=== PATIENT | female | born 1935 | race Caucasian/White ===

== ENCOUNTER 2017-05-01 08:22 | Emergency (ER) | payer MEDICARE, OTHER ==
[2017-05-01 08:23] VITALS: BMI 28.7
[2017-05-01 08:44] VITALS: RESP 18
[2017-05-01] MEDS ORDERED: TDAP Vaccine 0.5 mL Syr IM ONE (08:54)
--- NOTE | 2017-05-01 08:56 | ED PDOC ---
Arrival/HPI <Keely Vasques - Last Filed: 05/01/17 09:23> <Anay Clemons P - Last Filed: 05/01/17 10:19> - General Historian: Patient <Florentin Feldman - Last Filed: 05/01/17 12:29> - General Chief Complaint: Trauma Time Seen by Provider: 05/01/17 08:46 - History of Present Illness Narrative History of Present Illness (Text): 05/01/17 08:58 81 year old female, whose past medical history includes diabetes and hypertension, presents s/p mechanical fall with minor trauma to right ear. Pt states she was going down the step when she missed the last one and fell forward striking the right side of her head on the railing. She had no LOC. Denies any current dizziness, visual changes, headache or acute loss of hearing. Denies any anticoagulant or antiplatelets. PMD: Rekha (GastonFlorentin) Past Medical History - Provider Review Nursing Documentation Reviewed: Yes - Infectious Disease Hx of Infectious Diseases: None - Cardiac Hx Hypertension: Yes - Neurological Hx Paralysis: No - HEENT Other/Comment: Difficulty hearing - Endocrine/Metabolic Hx Diabetes Mellitus Type 2: Yes - Hematological/Oncological Hx Blood Transfusions: No Hx Blood Transfusion Reaction: No - Musculoskeletal/Rheumatological Hx Musculoskeletal Disorders: No Hx Falls: No - Psychiatric Hx Depression: Yes Hx Emotional Abuse: No Hx Physical Abuse: No Hx Substance Use: No - Surgical History Hx Cholecystectomy: Yes Other/Comment: nose surgery - Anesthesia Hx Anesthesia: Yes Hx Anesthesia Reactions: No Hx Malignant Hyperthermia: No - Suicidal Assessment Feels Threatened In Home Enviroment: No <Florentin Feldman - Last Filed: 05/01/17 12:29> Family/Social History - Physician Review Nursing Documentation Reviewed: Yes Family/Social History: No Known Family HX Smoking Status: Never Smoked Hx Alcohol Use: No Hx Substance Use: No Hx Substance Use Treatment: No <Florentin Feldman - Last Filed: 05/01/17 12:29> Allergies/Home Meds <Keely Vasques - Last Filed: 05/01/17 09:23> <Anay Clemons P - Last Filed: 05/01/17 10:19> <Florentin Feldman - Last Filed: 05/01/17 12:29> Allergies/Adverse Reactions: Allergies No Known Allergies Allergy (Verified 05/01/17 08:34) Home Medications: Home Meds Medication Instructions Recorded Confirmed metFORMIN [glucOPHAGE] 500 mg PO BID 06/22/12 12/20/16 Irbesartan [Avapro] 300 mg PO DAILY 04/03/15 12/20/16 Escitalopram [Lexapro] 10 mg PO DAILY 11/26/15 12/20/16 Alprazolam 0.5 mg PO BID PRN 02/21/16 12/20/16 Atenolol [Tenormin] 25 mg PO DAILY 02/21/16 12/20/16 Review of Systems - Physician Review All systems were reviewed & negative as marked: Yes - Review of Systems Constitutional: Normal Eyes: Normal. absent: Vision Changes, Photophobia ENT: Normal. absent: Hearing Changes, Tinnitus Respiratory: Normal. absent: SOB, Cough Cardiovascular: Normal. absent: Chest Pain, Palpitations Gastrointestinal: Normal. absent: Abdominal Pain, Nausea, Vomiting Genitourinary Female: Normal Musculoskeletal: Normal Skin: Laceration (right ear) Neurological: Normal. absent: Headache, Dizziness, Focal Weakness, Speech Changes, Disequilibrium Endocrine: Normal Hemo/Lymphatic: Normal Psychiatric: Normal <Florentin Feldman - Last Filed: 05/01/17 12:29> Physical Exam Vital Signs Reviewed: Yes Temperature: Afebrile Blood Pressure: Hypertensive Pulse: Regular Respiratory Rate: Normal Appearance: Positive for: Non-Toxic, Uncomfortable Pain Distress: Mild Mental Status: Positive for: Alert and Oriented X 3 - Systems Exam Head: Present: Atraumatic, Normocephalic Pupils: Present: PERRL Extroacular Muscles: Present: EOMI Ears: Present: Other (to right ear. Through and through laceration - 2cm over antihelix extending through ear and ~3-4cm on posterior side) Mouth: Present: Moist Mucous Membranes Respiratory/Chest: No: Respiratory Distress, Accessory Muscle Use Cardiovascular: Present: Regular Rate and Rhythm, Normal S1, S2 Abdomen: No: Tenderness, Distention Upper Extremity: Present: NORMAL PULSES, Neurovascularly Intact Lower Extremity: Present: NORMAL PULSES, Neurovascularly Intact Neurological: Present: Speech Normal, Motor Func Grossly Intact Skin: Present: Warm, Dry Psychiatric: Present: Alert, Oriented x 3 <Florentin Feldman - Last Filed: 05/01/17 12:29> Vital Signs Temp Pulse Resp BP Pulse Ox 05/01/17 08:31 97.5 F L 67 18 169/59 H 96 05/01/17 08:23 97.5 F L 67 18 169/59 H 96 Medical Decision Making <Keely Vasques - Last Filed: 05/01/17 09:23> <Anay Clemons P - Last Filed: 05/01/17 10:19> <Florentin Feldman - Last Filed: 05/01/17 12:29> ED Course and Treatment: 05/01/17 09:23 Patient seen and examined with medical device engineer. Treatment plan reviewed and patient also examined by me. Assembler Fluorescent Lights present. Patient denies syncope. Denies LOC. Denies loss of vision. Denies hip or knee or back pain. Denies dizziness or shortness of breath. On exam there is through and through laceration at antihelix of right ear with focal tenderness to right parietal scalp without deformity. She is neurologically intact. DENIES NECK PAIN. No numbness or weakness. Wound irrigated and cleansed. ENT consulted. Will repair laceration in ED, follow-up with ENT. In ED, plan to CT head, re-exam. (Keely Vasques) 05/01/17 09:07 82 yo F with through and through laceration of the right ear Plan: - CT head and IAC - TDAP - Tylenol 05/01/17 09:09 Spoke with ENT, will repair laceration and have pt follow up with ENT in the office. 05/01/17 11:21 Laceration repaired by Anay Clemons with no complications (see procedure note). Will discharge home with Augmentin pending CT read with follow up to ENT. 05/01/17 12:[address] as read by Dr Javed RIGHT TEMPORAL BONE: RIGHT MIDDLE EAR: Normal RIGHT INNER EAR: Cochlea: Normal Semicircular canals: Normal RIGHT MASTOID AIR CELLS: Normal RIGHT INTERNAL AUDITORY CANAL: Normal RIGHT EXTERNAL AUDITORY CANAL: Normal RIGHT VESTIBULAR AND COCHLEAR AQUEDUCT: Normal OTHER: There is some soft tissue swelling of the right external ear. No evidence of fracture LEFT TEMPORAL BONE: LEFT MIDDLE EAR: Normal LEFT INNER EAR: Cochlea: Normal Semicircular canals: Normal LEFT MASTOID AIR CELLS: Normal LEFT INTERNAL AUDITORY CANAL: Normal LEFT EXTERNAL AUDITORY CANAL: Normal LEFT VESTIBULAR AND COCHLEAR AQUEDUCTS: Normal OTHER FINDINGS: None . IMPRESSION: No evidence of fracture. No acute findings Mild soft tissue swelling of the right external ear. Head CT as read by Dr Aldana HEMORRHAGE: No intracranial hemorrhage. BRAIN: No mass effect or edema. No atrophy or chronic microvascular ischemic changes. VENTRICLES: Unremarkable. No hydrocephalus. CALVARIUM: Unremarkable. PARANASAL SINUSES: Unremarkable as visualized. No significant inflammatory changes. MASTOID AIR CELLS: Unremarkable as visualized. No inflammatory changes. OTHER FINDINGS: None. IMPRESSION: Normal CT of the Head. (Florentin Feldman) - RAD Interpretation Radiology Orders: 05/01/17 08:52 HEAD W/O CONTRAST [CT] Stat 05/01/17 08:53 IAC W/O CONTRAST [CT] Stat - Medication Orders Current Medication Orders: Discontinued Medications Acetaminophen (Tylenol 325mg Tab) 650 mg PO STAT STA Stop: 05/01/17 08:54 Last Admin: 05/01/17 09:02 Dose: 650 mg Lidocaine HCl (Lidocaine 1% (20ml)) Confirm Administered Dose 20 ml .ROUTE .STK- MED ONE Stop: 05/01/17 09:17 Tetanus/Reduced Diphtheria/Acell Pertussis (Boostrix Vaccine Inj) 0.5 ml IM .ONCE ONE Stop: 05/01/17 08:55 Last Admin: 05/01/17 09:02 Dose: 0.5 ml - Procedure PROCEDURE NOTE (Text): 05/01/17 10:19 PROCEDURE: LACERATION REPAIR Performed by the emergency provider Location: right ear lobe Length: 5 cm Description: irregular wound edges, no foreign bodies Distal CMS: Normal. No deficits. Neurovascularly intact. Anesthesia: Lidocaine 1% without Epi Preparation: The wound was cleaned with NS and Betadyne. The area was prepped and draped in the usual sterile fashion. Exploration: The wound was explored and no foreign bodies were found. Procedure: The wound was closed with Vicryl. Double layer repaired. 6-0, interrupted. There was good approximation. In total, 15 sutures were used. Post-Procedure: Good closure and hemostasis. The patient tolerated the procedure well and there were no complications. CSM remains intact. Post procedure dressing applied. (Anay Clemons) - PA / PAINT FORMULATOR / Resident Statement / has reviewed & agrees with the documentation as recorded. / has examined the patient and agrees with the treatment plan. <Keely Vasques - Last Filed: 05/01/17 09:23> Disposition/Present on Arrival <Keely Vasques - Last Filed: 05/01/17 09:23> <Anay Clemons - Last Filed: 05/01/17 10:19> - Present on Arrival Any Indicators Present on Arrival: Yes History of DVT/PE: No History of Uncontrolled Diabetes: Yes Urinary Catheter: No History of Decub. Ulcer: No History Surgical Site Infection Following: None - Disposition Have Diagnosis and Disposition been Completed?: Yes Disposition Time: 12:26 Patient Plan: Discharge <Florentin Feldman - Last Filed: 05/01/17 12:29> - Disposition Diagnosis: Minor head trauma, Laceration of ear Disposition: HOME/ ROUTINE Patient Problems: Current Active Problems Problem Status Onset Laceration of ear Acute Minor head trauma Acute Condition: GOOD Discharge Instructions (ExitCare): Laceration (ED) Additional Instructions: You were evaluated for minor head trauma with laceration to right ear. Keep area clean and dry. Take antibiotics as directed for 1 week. Follow up with ENT specialist within the next week as well for further evaluation. Please return to the ED with any new or worsening symptoms. Prescriptions: Amoxicillin/Clavulanate [Augmentin 875 MG-125 MG] 1 tab PO BID #14 tab Referrals: PCP,NO [Non-Staff] - Follow up with primary Cipriano Stone DO [[facility]] - Follow up with primary
[2017-05-01] MEDS ORDERED: Lidocaine 1% Inj (20ml) ONE (09:16)
--- NOTE | 2017-05-01 11:27 | CT ---
PROCEDURE: CT HEAD WITHOUT CONTRAST. HISTORY: mechanical fall COMPARISON: None available. TECHNIQUE: Axial computed tomography images were obtained through the head/brain without intravenous contrast. Radiation dose: Total exam DLP = 689 mGy-cm. This CT exam was performed using one or more of the following dose reduction techniques: Automated exposure control, adjustment of the mA and/or kV according to patient size, and/or use of iterative reconstruction technique. FINDINGS: HEMORRHAGE: No intracranial hemorrhage. BRAIN: No mass effect or edema. No atrophy or chronic microvascular ischemic changes. VENTRICLES: Unremarkable. No hydrocephalus. CALVARIUM: Unremarkable. PARANASAL SINUSES: Unremarkable as visualized. No significant inflammatory changes. MASTOID AIR CELLS: Unremarkable as visualized. No inflammatory changes. OTHER FINDINGS: None. IMPRESSION: Normal CT of the Head.
--- NOTE | 2017-05-01 12:20 | CT ---
PROCEDURE: CT OF THE TEMPORAL BONES WITHOUT CONTRAST HISTORY: right ear trauma COMPARISON: None available. TECHNIQUE: High resolution axial images of the temporal bones were obtained. Coronal and sagittal reformats were generated. Radiation dose: Total exam DLP = 457 mGy-cm. This CT exam was performed using one or more of the following dose reduction techniques: Automated exposure control, adjustment of the mA and/or kV according to patient size, and/or use of iterative reconstruction technique. FINDINGS: RIGHT TEMPORAL BONE: RIGHT MIDDLE EAR: Normal RIGHT INNER EAR: Cochlea: Normal Semicircular canals: Normal RIGHT MASTOID AIR CELLS: Normal RIGHT INTERNAL AUDITORY CANAL: Normal RIGHT EXTERNAL AUDITORY CANAL: Normal RIGHT VESTIBULAR AND COCHLEAR AQUEDUCT: Normal OTHER: There is some soft tissue swelling of the right external ear. No evidence of fracture LEFT TEMPORAL BONE: LEFT MIDDLE EAR: Normal LEFT INNER EAR: Cochlea: Normal Semicircular canals: Normal LEFT MASTOID AIR CELLS: Normal LEFT INTERNAL AUDITORY CANAL: Normal LEFT EXTERNAL AUDITORY CANAL: Normal LEFT VESTIBULAR AND COCHLEAR AQUEDUCTS: Normal OTHER FINDINGS: None . IMPRESSION: No evidence of fracture. No acute findings Mild soft tissue swelling of the right external ear.
[2017-05-01 12:33] VITALS: BP 150/73; PULSE 71; TEMP 98; O2SAT 98
== END 2017-05-01 12:48 | disposition home or self-care (01) ==
LOC: ED 08:22
DX: S01.311A Laceration without foreign body of right ear, initial encounter (principal); W10.9XXA Fall (on) (from) unspecified stairs and steps, initial encounter; Z23 Encounter for immunization; I10 Essential (primary) hypertension; E11.9 Type 2 diabetes mellitus without complications

== ENCOUNTER 2019-03-08 14:18 | Outpatient (CLI) | payer MEDICARE | END 2019-03-08 14:19 | disposition home or self-care (01) | LOC: RAD 14:18 | DX: Z12.31 Encounter for screening mammogram for malignant neoplasm of breast (principal) ==